=== PATIENT | female | born 1985 | race Caucasian/White ===

== ENCOUNTER 2020-03-15 11:01 | Emergency (ER) | payer MEDICAID, OTHER ==
[~2020-03-15] VITALS: Ht 165 cm; Wt 83.0 kg
[2020-03-15 11:08] VITALS: BP 148/90
[2020-03-15] MEDS ORDERED: RX-AMOX/CLAV. (AUGMENTIN) 500MG TAB PPK#2 PO STA (11:33)
[2020-03-15] MEDS ORDERED: AMOX500C2 PO (11:37)
--- NOTE | 2020-03-15 11:37 | ED EENT ---
History of Present Illness General Chief Complaint: Dental Problems/Pain Stated Complaint: TOOTH INFECTION Nursing Triage Note: ARRIVED VIA AMB TO ROOM 05 WITH COMPLAINTS OF LEFT LOWER TOOTH PAIN. [place] VISITING. Source: patient Exam Limitations: no limitations History of Present Illness Date Seen by Provider: Mar 15, 2020 Time Seen by Provider: 11:34 Initial Comments To ER with left lower dental pain for several weeks, she is here visiting from out of town. Timing/Duration: gradual Severity: moderate Location: dental Prearrival Treatment: no prearrival treatment Associated Symptoms: denies symptoms Allergies and Home Medications Allergies Coded Allergies: No Known Drug Allergies (Unverified , 03/15/20) Patient Home Medication List Home Medication List Reviewed: Yes Review of Systems Review of Systems Constitutional: see HPI; No chills, No fever Eyes: No Symptoms Reported Ears: No Symptoms Reported Nose: no symptoms reported Mouth: see HPI, pain; denies swelling Throat: no symptoms reported Respiratory: no symptoms reported Cardiovascular: no symptoms reported Musculoskeletal: no symptoms reported Past Ofdeldq-Pofzin-Jsekpa Hx Patient Social History Alcohol Use: Denies Use Recreational Drug Use: No Smoking Status: Never a Smoker Recent Foreign Travel: No Contact w/Someone Who Travel: No Recent Infectious Disease Expo: No Recent Hopitalizations: No Seasonal Allergies Seasonal Allergies: No Past Medical History Surgeries: Yes Section Respiratory: No Cardiac: No Neurological: No Genitourinary: No Gastrointestinal: No Musculoskeletal: No Endocrine: No HEENT: No Cancer: No Integumentary: No Physical Exam Vital Signs Vital Signs - First Documented 03/15/20 11:08 Temp 35.9 Pulse 85 Resp 16 B/P (MAP) 148/90 (109) Pulse Ox 97 O2 Delivery Room Air Height, Weight, BMI Height: '" Weight: lbs. oz. kg; 30.00 BMI Method: General Appearance: WD/WN, no apparent distress Eyes: bilateral eye normal inspection, bilateral eye PERRL, bilateral eye EOMI Ears: bilateral ear auricle normal, bilateral ear canal normal, bilateral ear TM normal Mouth/Throat: No tonsillar swelling, No trismus, No uvula swelling; other (There is a carious and and fractured left lower molar without palpable abscess) Neck: non-tender, full range of motion; No lymphadenopathy (R) Respiratory: no respiratory distress, no accessory muscle use Neurologic/Psychiatric: alert, normal mood/affect, oriented x 3 Skin: normal color, warm/dry Progress/Results/Core Measures Results/Orders My Orders Orders - NAKUL BRAY APRN Rx-Amoxicillin/Clav Tab (Rx-Augmentin Ta (03/15/20 11:33) Rx-Hydrocodone/Apap 5-325 Mg (Rx-Vicodin (03/15/20 11:45) Vital Signs/I&O 03/15/20 11:08 Temp 35.9 Pulse 85 Resp 16 B/P (MAP) 148/90 (109) Pulse Ox 97 O2 Delivery Room Air Blood Pressure Mean: 109 Departure Impression Primary Impression: Dental caries Disposition: HOME, SELF-CARE Condition: Stable Departure-Patient Inst. Decision time for Depature: 11:36 Patient Instructions: Dental Pain (DC) Add. Discharge Instructions: 1. Follow-up with your dentist as soon as possible. Take the antibiotics as directed. When the pain medication runs out use Tylenol and ibuprofen for pain control as well as topical Orajel. All discharge instructions reviewed with patient and/or family. Voiced understdanyel roper. Scripts Amoxicillin (Amoxicillin) 500 Mg Capsule 500 MG PO TID, #21 CAP 0 Refills Prov: NAKUL BRAY APRN 03/15/20 NAKUL BRAY APRN Mar 15, 2020 11:37
[2020-03-15] MEDS ORDERED: RX-HYDROCODONE/APAP 5/325 MG #4 TAB PK PO PRN (11:45)
== END 2020-03-15 11:50 | disposition home or self-care (01) ==
LOC: ER 11:06
DX: K02.9 Dental caries, unspecified (principal)
CPT/HCPCS: 99283

== ENCOUNTER 2020-03-15 19:11 | Emergency (ER) | payer MEDICAID ==
[~2020-03-15] VITALS: Ht 165 cm; Wt 83.0 kg
[~2020-03-15 19:11] MED LIST: AMOX500C2 PO
[2020-03-15 19:40] VITALS: BP 144/110
--- NOTE | 2020-03-15 20:09 | ED EENT ---
History of Present Illness General Chief Complaint: Dental Problems/Pain Stated Complaint: TOOTH PAIN Nursing Triage Note: left lower dental pain. Source: patient Exam Limitations: no limitations History of Present Illness Date Seen by Provider: Mar 15, 2020 Time Seen by Provider: 20:08 Initial Comments Left lower dental pain. Was seen here earlier today for the same and given a prescription for antibiotics and hydrocodone. She has taken Motrin +2 of the hydrocodone without much relief. Timing/Duration: other Severity: moderate Associated Symptoms: facial pain/swelling Allergies and Home Medications Allergies Coded Allergies: No Known Drug Allergies (Unverified , 03/15/20) Home Medications Amoxicillin 500 Mg Capsule, 500 MG PO TID Prescribed by: NAKUL BRAY on 03/15/20 1137 Patient Home Medication List Home Medication List Reviewed: Yes Review of Systems Review of Systems Constitutional: see HPI Eyes: No Symptoms Reported Ears: No Symptoms Reported Nose: no symptoms reported Mouth: see HPI Throat: no symptoms reported Respiratory: no symptoms reported Cardiovascular: no symptoms reported Musculoskeletal: no symptoms reported Past Stttlfo-Seowrf-Szydvr Hx Patient Social History Alcohol Use: Denies Use Recreational Drug Use: No Smoking Status: Current Someday Smoker Type Used: Cigarettes 2nd Hand Smoke Exposure: Yes Recent Foreign Travel: No Contact w/Someone Who Travel: No Recent Infectious Disease Expo: No Recent Hopitalizations: No Immunizations Up To Date Tetanus Booster (TDap): Unknown Seasonal Allergies Seasonal Allergies: No Past Medical History Surgeries: Yes Section Respiratory: No Cardiac: No Neurological: No : No Genitourinary: No Gastrointestinal: No Musculoskeletal: No Endocrine: No HEENT: No Cancer: No Psychosocial: No Integumentary: No Blood Disorders: No Physical Exam Vital Signs Vital Signs - First Documented 03/15/20 19:40 Temp 36.9 Pulse 79 Resp 18 B/P (MAP) 144/110 (121) Pulse Ox 96 O2 Delivery Room Air Height, Weight, BMI Height: '" Weight: lbs. oz. kg; 30.00 BMI Method: General Appearance: WD/WN, no apparent distress Eyes: bilateral eye normal inspection, bilateral eye PERRL, bilateral eye EOMI Ears: bilateral ear auricle normal, bilateral ear canal normal, bilateral ear TM normal Mouth/Throat: No mandibular swelling, No maxillary swelling Neck: non-tender, full range of motion Cardiovascular: regular rate, rhythm, no murmur Respiratory: no respiratory distress, no accessory muscle use Neurologic/Psychiatric: alert, normal mood/affect, oriented x 3 Skin: normal color, warm/dry Progress/Results/Core Measures Results/Orders Vital Signs/I&O 03/15/20 19:40 Temp 36.9 Pulse 79 Resp 18 B/P (MAP) 144/110 (121) Pulse Ox 96 O2 Delivery Room Air Blood Pressure Mean: 121 Departure Communication (Admissions) Did an inferior alveolar nerve block using 2 mL of 0.5% bupivacaine with epinephrine. Impression Primary Impression: Dental caries Disposition: HOME, SELF-CARE Condition: Stable Departure-Patient Inst. Decision time for Depature: 20:09 Patient Instructions: Dental Pain NAKUL BRAY [employer] Mar 15, 2020 20:09
== END 2020-03-15 20:15 | disposition home or self-care (01) ==
LOC: EDUNIT# 19:11 → ER 19:13
DX: K02.9 Dental caries, unspecified (principal); F17.210 Nicotine dependence, cigarettes, uncomplicated
CPT/HCPCS: 99284